=== PATIENT | male | born 1980 | race Hispanic/Latino ===

== ENCOUNTER 2020-03-22 03:22 | Emergency (ER) | payer OTHER ==
[~2020-03-22] VITALS: Ht 162.6 cm; Wt 68.0 kg
[2020-03-22] MEDS ORDERED: TETRACAINE HCL 0.5% OPTH SOLN 4 ML BTL ONE (03:38)
[2020-03-22] MEDS ORDERED: FLUORESCEIN SOD(OPTH) 1 MG STRP ONE (03:38)
[2020-03-22] MEDS ORDERED: TETRACAINE HCL 0.5% OPTH SOLN 4 ML BTL OP ONE (04:00)
[2020-03-22] MEDS ORDERED: FLUORESCEIN SOD(OPTH) 1 MG STRP OP ONE (04:00)
[2020-03-22] MEDS ORDERED: ERYTHROMYCIN (OPTH) 3.5 GM OINT OP ONE ×2 (04:27→04:30)
== END 2020-03-22 04:42 | disposition home or self-care (01) ==
LOC: FSED 04:34
DX: T15.01XA Foreign body in cornea, right eye, initial encounter (principal); Y99.0 Civilian activity done for income or pay; F17.210 Nicotine dependence, cigarettes, uncomplicated
CPT/HCPCS: 99284